=== PATIENT | female | born 1940 | race Caucasian/White ===

== ENCOUNTER → 2025-04-13 | Outpatient (CLI) | payer MEDICARE, SELFPAY ==
--- NOTE | 2025-04-13 12:24 | US_ITS ---
PROCEDURE: KIDNEY AND BLADDER 04/13/2025 REASON FOR EXAM: UTI TECHNIQUE: Grayscale and color Doppler evaluation of the kidneys and urinary bladder. COMPARISON: None FINDINGS: Kidneys: No significant hydronephrosis. No stone identified. There are subcentimeter anechoic lesions in the right kidney, likely simple cysts. RIGHT Kidney Size: 11.4 x 5.0 x 5.0 cm Volume: 149 mL Cortical Thickness (if discernible): 0.8 cm LEFT Kidney Size: 11.7 x 5.5 x 6.4 cm Volume: 216 mL Cortical Thickness (if discernible): 0.8 cm Urinary bladder wall measures 0.4 cm in thickness. Bilateral ureteral jets are visualized. Postvoid residual volume was not obtained. US/Kidney and Bladder IMPRESSION: 1. Mild cortical atrophy of both kidneys. No hydronephrosis or stone. 2. Borderline urinary bladder wall thickening. Correlate with urinalysis for evidence of cystitis. Reading Location: [facility]
== END | disposition home or self-care (01) ==
LOC: US 12:20
PROVIDERS: PCP Internal Medicine; Referring Provider Urology; Visit Provider Urology
DX: N39.0 Urinary tract infection, site not specified (principal)
CPT/HCPCS: 76770